=== PATIENT | male | born 1985 | race Caucasian/White ===

== ENCOUNTER → 2017-12-25 | Outpatient (CLI) | payer OTHER ==
[~2017-12-25] MED LIST: ALB0.5 INH; DOXY-179 PO; HYDR2TAB42 PO; LOR5/325 PO; PRE10 PO; PRO25 PO
== END ==
LOC: RESP 01:11
PROVIDERS: ATTEND Nurse Practitioner Family
DX: G47.33 Obstructive sleep apnea (adult) (pediatric) (principal)

== ENCOUNTER 2018-11-12 00:08 | Day surgery (SDC) | payer OTHER ==
[~2018-11-12] VITALS: Ht 180.3 cm; Wt 106.1 kg
[~2018-11-12 00:08] MED LIST changes: +BUPR-474 PO; +DEXL30CA5 PO; +LIDOCAINE/SOD BICARB 8.4% SYR ID ONE; +MULT-1335 PO; +NORMOSOL R SOLN(*) 1000 ML BAG 1,000 ML IV PRN
[2018-11-12] MEDS ORDERED: PROPOFOL EMUL(*) 10MG/ML 20 ML 20 ML ONE ×3 (08:18→12:30)
[2018-11-12 10:28] VITALS: BP 142/93
[2018-11-12] MEDS ORDERED: NORMOSOL R SOLN(*) 1000 ML BAG 1,000 ML IV PRN (10:40)
[2018-11-12] MEDS ORDERED: LIDOCAINE/SOD BICARB 8.4% SYR ID ONE (10:40)
[2018-11-12 12:41] VITALS: BP 136/85
[2018-11-12 12:51] VITALS: BP 124/78
[2018-11-12 13:30] VITALS: BP 130/81
[2018-11-12 13:31] VITALS: BP 135/8
== END 2018-11-12 13:40 | disposition home or self-care (01) ==
LOC: OR 00:08
PROVIDERS: ATTEND Internal Medicine Gastroenterology
DX: K44.9 Diaphragmatic hernia without obstruction or gangrene (principal); K20.9 Esophagitis, unspecified; K22.2 Esophageal obstruction; K29.70 Gastritis, unspecified, without bleeding
CPT/HCPCS: 43239; 43249; 88305; 88313; 88344; J2704